=== PATIENT | female | born 1965 | race Caucasian/White ===

== ENCOUNTER 2016-10-28 03:54 | Emergency (ER) | payer MEDICAID ==
[2016-10-28] MEDS ORDERED: METOCLOPRAMIDE HCL 5 MG/ML 2ML VIAL ONE (04:34)
[2016-10-28] MEDS ORDERED: LACTATED RINGERS 1,000 ML ONE (04:34)
[2016-10-28] MEDS ORDERED: DIPHENHYDRAMINE HCL 50 MG/1 ML VIAL ONE (04:34)
[2016-10-28] MEDS ORDERED: KETOROLAC TROMETHAMINE 15 MG/ML VIAL ONE (05:28)
--- NOTE | 2016-10-28 08:51 | CT ---
HEAD CT WITHOUT CONTRAST HISTORY: Headache x12 hours. No intravenous contrast administered. Contiguous axial images acquired from skull base to vertex. COMPARISON: 09/08/2012. BRAIN VOLUME:Grossly unremarkable for patient age. VENTRICULAR SIZE:No gross ventriculomegaly. FOCAL MASS EFFECT:None. ACUTE INTRACRANIAL HEMORRHAGE:None. CALVARIUM:Grossly intact. VISIBLE PARANASAL SINUSES AND MASTOID AIR CELLS: Mucosal thickening along the left anterior ethmoid air cell. Right frontal sinus aplasia. IMPRESSION: No gross mass effect, ventriculomegaly, or acute intracranial hemorrhage. Minimal paranasal sinus mucosal disease. Preliminary report relayed to the Emergency Medicine medical service by Dr. Awan on 10/28/2016 at 0444 hours.
== END 2016-10-28 06:51 | disposition home or self-care (01) ==
LOC: ED 03:54
DX: R51 Headache (principal); J45.909 Unspecified asthma, uncomplicated; F17.210 Nicotine dependence, cigarettes, uncomplicated
CPT/HCPCS: 70450; 96375 ×2; 99283 ×2; 96374; J1200; J2765; J1885; J7120

== ENCOUNTER 2016-10-31 00:57 | Emergency (ER) | payer MEDICAID, OTHER ==
[2016-10-31] MEDS ORDERED: ACETAMINOPHEN 500 MG TABLET ONE (03:02)
[2016-10-31] MEDS ORDERED: SODIUM CHLORIDE 0.9% 1,000 ML ONE (03:02)
[2016-10-31] MEDS ORDERED: DIPHENHYDRAMINE HCL 50 MG/1 ML VIAL ONE (03:03)
[2016-10-31] MEDS ORDERED: METOCLOPRAMIDE HCL 5 MG/ML 2ML VIAL ONE (03:03)
[2016-10-31 03:06] LABS: O2HB 84.1 % (94.0-97.0); TOTAL HEMOGLOBIN 15.2 g/dl (12.0-18.0)
[2016-10-31 03:07] LABS: CARBOXYHEMOGLOBIN 5.1 % (0.5-1.5); METHEMOGLOBIN 0.4 % (0.0-1.5)
[2016-10-31] MEDS ORDERED: PREDNISONE 20 MG TABLET ONE (04:12)
== END 2016-10-31 04:30 | disposition home or self-care (01) ==
LOC: ED 00:57
DX: G44.209 Tension-type headache, unspecified, not intractable (principal); G43.909 Migraine, unspecified, not intractable, without status migrainosus
CPT/HCPCS: 82375; 96375; 99283 ×2; 96374; 96361; J1200; J7512; J2765; A9270; J7030